=== PATIENT | female | born 1965 | race Caucasian/White ===

== ENCOUNTER 2022-09-04 11:56 | Emergency (ER) | payer OTHER ==
[2022-09-04 12:05] VITALS: BP_SYST 130
[2022-09-04] MEDS ORDERED: KETOROLAC TROMETHAMINE 60 MG/2 ML VIAL IM ONE (12:45)
[2022-09-04] MEDS ORDERED: HYDROcodone/ACETAMIN 10-325 MG TAB PO ONE (12:45)
[2022-09-04 12:48] LABS: ERYTHROCYTE SEDIMENTATION RATE 31 MM/HR (0-20)
[2022-09-04 12:50] LABS: BASOPHILS % (AUTO) 0.4 % (0.0-2.0); EOSINOPHILS # (AUTO) 0.1 K/uL (0.0-0.4); EOSINOPHILS % (AUTO) 1.2 % (0.0-4.0); HEMATOCRIT 39.1 % (36-48); HEMOGLOBIN 13.2 g/dL (12.0-16.0); LYMPHOCYTES # (AUTO) 1.8 K/uL (1.0-5.5); LYMPHOCYTES % (AUTO) 15.7 % (20.5-51.5); MEAN CORPUSCULAR HEMOGLOBIN 29 pg (27-31); MEAN CORPUSCULAR HGB CONC 34 % (32-36); MEAN CORPUSCULAR VOLUME 84 fL (79.0-98.0); MONOCYTES # (AUTO) 0.8 K/uL (0.0-1.0); MONOCYTES % (AUTO) 7.2 % (1.7-9.3); NEUTROPHILS # (AUTO) 8.8 K/uL (1.8-7.7); NEUTROPHILS % (AUTO) 75.5 % (40.0-70.0); PLATELET COUNT (AUTO) 227 K/uL (130-430); RED BLOOD CELL COUNT(AUTO) 4.65 MIL/uL (4.2-6.2); RED CELL DISTRIBUTION WIDTH 13.8 % (9.0-15.0); WHITE BLOOD COUNT (AUTO) 11.6 K/uL (4.8-10.8)
--- NOTE | 2022-09-04 12:50 | NUR ---
PT STABLE. MD GIRON SPOKE WITH PT. PT PLACED IN BED 3, RN AWARE.
--- NOTE | 2022-09-04 13:00 | NUR ---
pt bib c/o right shoulder pain. pt denies any trauma to the arm previous to pain. pt has pain on movement. Pulses +2 and cap refil <3. pt is gcs 15 eyes open spontaneously oriented to person place, time, and situation. pt denies visual or auditory problems at ths time. pt denies sob and chest pain. abdomin is soft. pt skin is warm to touch. pt is in room 3 on the monitor with at bedside.
[2022-09-04 13:07] LABS: ALBUMIN 3.7 g/dL (3.4-4.8); C-REACTIVE PROTEIN QUANT 5.3 mg/dL (0-0.5); CALCIUM 8.5 mg/dL (8.4-11.0); CREATININE 0.68 mg/dL (0.55-1.30); TOTAL BILIRUBIN 0.5 mg/dL (0.0-1.0)
--- NOTE | 2022-09-04 13:31 | NUR ---
MARY ANN Harvey spoke with patient and patient is with pain to shoulder. Awaiting results to be completed and MD to reevaluate patient prior to discharge.
[2022-09-04 14:12] VITALS: BP_SYST 129
--- NOTE | 2022-09-04 14:21 | NUR ---
Patient given written and verbal discharge instructions and verbalizes understanding. ER MD discussed with patient the results and treatment provided. Patient in stable condition. ID arm band removed. Rx of ibuprofen given. Patient educated on pain management and to follow up with PMD. Pain Scale 3 out of 10 . Opportunity for questions provided and answered. Medication side effect fact sheet provided.
== END 2022-09-04 14:21 | disposition home or self-care (01) ==
LOC: SED 11:56
DX: M25.511 Pain in right shoulder (principal); Z79.899 Other long term (current) drug therapy
CPT/HCPCS: 99284; 80053; 84550; 85025; 85651; 86140; 36415; 73030; 96372; J1885